=== PATIENT | male | born 1995 | race Caucasian/White ===

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

== ENCOUNTER 2021-12-14 20:42 | Emergency (ER) | payer OTHER ==
[~2021-12-14 20:42] MED LIST: BACTROBAN OINT22 GM EXT; IBUPROFEN600 MG PO; KEFLEX CAP 500500 MG PO; NORCO 7.5-3251 EACH PO; PREDNISONE20 MG PO
[2021-12-14] MEDS ORDERED: PEPCID40 MG PO (22:21)
[2021-12-14] MEDS ORDERED: PREDNISONE 50 M50 MG PO (22:21)
[2021-12-14] MEDS ORDERED: BENADRYL 50MG C50 MG PO (22:21)
[2021-12-14] MEDS ORDERED: PREDNISONE 20 M20 MG PO (23:23)
== END 2021-12-14 23:31 | disposition home or self-care (01) ==
LOC: ER1 20:42
DX: T78.40XA Allergy, unspecified, initial encounter (principal); F17.290 Nicotine dependence, other tobacco product, uncomplicated
CPT/HCPCS: 96374; 96375; 99282; J2930